=== PATIENT | female | born 1975 ===

== ENCOUNTER → 2018-07-28 | Outpatient (CLI) | payer BC ==
--- NOTE | 2018-08-01 15:06 | PATHOLOGY ---
[facility] Accession Number: [id number] . 01 Material submitted: . heel - LEFT HEEL. Modifiers: left . 01 Clinician provided ICD-10: B07.0 . 01 Clinical history: . None provided. . 02 Diagnosis: Segments of skin, left heel: - Plantar verruca. (JPM:coral; 08/01/2018) QMS/08/01/2018 . 02 Comment: There is no evidence of malignancy. . 02 Electronically signed: . Anton Schneider MD, Pathologist NPI- [id number] . 01 Gross description: . Received in formalin labeled "Stack, Willa, wart left heel" are four fragments of strong-white skin measuring in aggregate 1.6 x 1.0 x 0.3 cm. The fragments display multiple areas of strong-white verrucoid lesions. The margins are not inked due to the fragmented nature of the specimen. The largest piece is bisected and the specimen is submitted entirely in cassette A1. ([facility]; 07/30/2018) SY/[facility] . 02 Pathologist provided ICD-10: B07.0 . 02 CPT . 028794 Specimen Comment: A courtesy copy of this report has been sent to Specimen Comment: [phone]. Performed at: 01 [facility] [address], [place] [id number] MD Kwaku Downey MD Phone: [phone] Performed at: 02 [facility] [address] [place], [place] [id number] MD Anton Schneider MD Phone: [phone]
== END | disposition home or self-care (01) ==
LOC: SPEC 14:42
PROVIDERS: ATTEND Podiatrist
DX: B07.0 Plantar wart (principal)
CPT/HCPCS: 88305